=== PATIENT | male | born 1985 | race Two or more races ===

== ENCOUNTER 2024-11-05 15:00 | Outpatient (RCR) | payer MEDICAID, SELFPAY ==
--- NOTE | 2024-10-24 16:03 | PT.OIERPT ---
PT OP Initial Eval Patient Information Outpatient Physical Therapy Treatment Date: 10/24/24 Visit Reasons: right hand /wrist pain Medical Diagnosis: Right Hand Pain; Right Carpal Tunnel Syndrome Treatment Dx #1: Right Hand Pain Treatment Dx #2: Right Hand Weakness Start of Care: 10/24/24 Date of Onset: 6 months ago Smoking Status Smoking Status: Never smoker Initial Assessment Subjective: Pt is a 39 y/o male reports of right hand pain (3/10) with weakness ~ 6months ago. Pt's provider confirmed carpal tunnel syndrome. Pt has limitation with work duties, chores, self care, gripping, lifting, and performing recreational activities. 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
--- NOTE | 2024-11-05 15:27 | PT.ODAYNRPT ---
PT Outpatient Daily Note OP Daily Note Outpatient Physical Therapy Treatment Date: 11/05/24 Visit Reasons: right hand /wrist pain Subjective: Pt's hand is same. No change in pain or overall symptoms. Objective: Please see flow chart for list of ther ex performed Assessment: tolerate exercises with minimal pain Plan: Continue with PT Length of Time (minutes) of Treatment: 30 Minutes Procedure Charges Therapeutic Exercise 30 minutes: Yes
--- NOTE | 2024-11-05 15:46 | PT.ODAYNRPT ---
PT Outpatient Daily Note OP Daily Note Outpatient Physical Therapy Treatment Date: 11/05/24 Visit Reasons: right hand /wrist pain
== END 2024-11-05 23:59 | disposition home or self-care (01) ==
LOC: CPTX 15:00
DX: M79.641 Pain in right hand (principal); R53.1 Weakness
CPT/HCPCS: 97110; 97162

== ENCOUNTER → 2024-11-05 | Outpatient (CLI) | payer MEDICAID, SELFPAY ==
--- NOTE | 2024-11-05 13:02 | XR_ITS ---
Examination: Hand, left 3 views Technique: Hand AP, oblique, lateral 3 views Date and time of exam: November 05, 2024 1304 hours INDICATIONS: Left hand and wrist swelling and pain beginning 3 days ago FINDINGS: Mild juxta-articular bone demineralization No acute fracture No dislocation No foreign body Early osteoarthritis navicular trapezium first carpometacarpal joint, first metacarpophalangeal joint IMPRESSION: No fracture Minimal osteoarthritis
--- NOTE | 2024-11-05 13:02 | XR_ITS ---
Examination: Wrist, left 3 views Technique: Wrist AP, oblique, lateral 3 views Date and time of exam: November 05, 2024 1304 hours INDICATIONS: Left wrist pain beginning 20 days ago FINDINGS: Mild osteopenia Minimal narrowing radiocarpal, navicular trapezium, first carpometacarpal joints No fractures No avascular necrosis IMPRESSION: Minimal osteoarthritis
== END | disposition home or self-care (01) ==
LOC: CDIM 12:50
PROVIDERS: PCP Family Medicine; Referring Provider Nurse Practitioner Gerontology; Visit Provider Nurse Practitioner Gerontology
DX: M15.9 Polyosteoarthritis, unspecified (principal)
CPT/HCPCS: 73110; 73130

== ENCOUNTER 2024-11-11 15:07 | Outpatient (RCR) | payer MEDICAID, SELFPAY ==
--- NOTE | 2024-11-11 15:35 | PT.ODAYNRPT ---
PT Outpatient Daily Note OP Daily Note Outpatient Physical Therapy Treatment Date: 11/11/24 Visit Reasons: right hand/wrist pain Subjective: No new complaints. Objective: Please see flow sheet for ther ex list. Assessment: Aggravating symptoms with light gripping interventions, pt took rest breaks in between reps. Plan: Continue with poC. Length of Time (minutes) of Treatment: 30 Minutes Procedure Charges Therapeutic Exercise 30 minutes: Yes
--- NOTE | 2024-12-24 11:55 | PT.ODS1RPT ---
PT OP Progress/Discharge Note Date of Service: 12/24/24 Progress Note/DC Note Progress Note/Discharge Note: DC Note Patient Information Visit Reasons: right hand/wrist pain Service Continue Service or Discharge: Discharge Discharge Date: 12/24/24 Status Assessment: Pt has been seen for 3 visits (eval + 2 visits). Pt last treated on 11/11/24. Pt has not return to therapy and will be d/c from care due to non-compliance per attendance policy. Pt did not meet set goals in therapy; thank you for your referrals
== END 2024-12-06 23:59 | disposition home or self-care (01) ==
LOC: CPTX 15:07
DX: M79.641 Pain in right hand (principal); R53.1 Weakness
CPT/HCPCS: 97110